=== PATIENT | female | born 1995 | race American Indian/Alaskan Native ===

== ENCOUNTER 2021-06-19 11:04 | Emergency (ER) | payer OTHER ==
--- NOTE | 2021-06-19 12:04 | Emergency Department Report ---
ED Female HPI - General Chief complaint: Vaginal Bleeding Stated complaint: 8WKS /BLEEDING Time Seen by Provider: 06/19/21 11:30 Source: patient Mode of arrival: Ambulatory Limitations: No Limitations - History of Present Illness Initial comments: 26-year-old female with no significant past medical history presents to the ER today with complaints of vaginal bleeding. Patient states that she is about 8 weeks based on her last menstrual cycle which was April 13, 2021. Patient states that she noticed the bleeding this morning. She states that when she wiped after urinating there was small amount of blood on the tissue. She has not had to use a pad or a panty liner. She denies any abdominal cramping. She denies any UTI symptoms or any abnormal vaginal discharge. She states that she is G1, P0. Her first appointment is May 31 with an [facility] at [facility]. Complaint: vaginal bleeding, other (about 8 weeks ) -: Sudden, This morning - Related Data Allergies Allergy/AdvReac Type Severity Reaction Status Date / Time No Known Allergies Allergy Unverified 06/19/21 11:17 ED Review of Systems ROS: Stated complaint: 8WKS /BLEEDING Other details as noted in HPI Comment: All other systems reviewed and negative Constitutional: denies: chills, fever Eyes: denies: eye pain, eye discharge, vision change ENT: denies: ear pain, throat pain Respiratory: denies: cough, orthopnea, shortness of breath, SOB with exertion, SOB at rest, stridor, wheezing Cardiovascular: denies: chest pain, palpitations Endocrine: no symptoms reported Gastrointestinal: denies: abdominal pain, nausea, diarrhea, constipation, hematemesis, hematochezia Genitourinary: other (abnormal vaginal bleeding). denies: urgency, dysuria, frequency, hematuria, discharge Musculoskeletal: denies: back pain, joint swelling, arthralgia Skin: denies: rash, lesions Neurological: denies: headache, weakness, numbness, paresthesias, confusion, abnormal gait, vertigo Psychiatric: denies: anxiety, depression, auditory hallucinations, visual hallucinations, homicidal thoughts, suicidal thoughts Hematological/Lymphatic: denies: easy bleeding, easy bruising ED Physical Exam - General Limitations: No Limitations General appearance: alert, in no apparent distress - Head Head exam: Present: atraumatic, normocephalic, normal inspection - Eye Eye exam: Present: normal appearance, PERRL, EOMI Pupils: Present: normal accommodation - ENT ENT exam: Present: normal exam, mucous membranes moist, TM's normal bilaterally - Neck Neck exam: Present: normal inspection, full ROM - Respiratory Respiratory exam: Present: normal lung sounds bilaterally. Absent: respiratory distress, wheezes, rales, rhonchi - Cardiovascular Cardiovascular Exam: Present: regular rate, normal rhythm, normal heart sounds - GI/Abdominal GI/Abdominal exam: Present: soft. Absent: distended, tenderness, guarding, rebound - Neurological Exam Neurological exam: Present: alert, oriented X3, CN II-XII intact, normal gait - Psychiatric Psychiatric exam: Present: normal affect, normal mood - Skin Skin exam: Present: intact, normal color ED Course Vital Signs 06/19/21 11:14 Temperature 98.9 F Pulse Rate 78 Respiratory 16 Rate Blood Pressure 137/70 [Left] O2 Sat by Pulse 99 Oximetry ED Medical Decision Making - Lab Data Result diagrams: 06/19/21 12:10 06/19/21 12:10 - Radiology Data Radiology results: report reviewed Patient: WAYNE MOSS MR#: [id number] : 1995 Acct:[id number] Age/Sex: 26 / F ADM Date: 06/19/21 Loc: ED Attending Dr: Ordering Physician: CECILE ALEGRIA Date of Service: 06/19/21 Procedure(s): US OB transvaginal Accession Number(s): [id number] cc: CECILE ALEGRIA ULTRASOUND OBSTETRIC INDICATION / CLINICAL INFORMATION: vag bleeding/8weeks preg. Clinical Gestational Age (GA) in weeks, days: 8, 5 TECHNIQUE: Transvaginal. COMPARISON: None available. FINDINGS: GESTATIONAL SAC: Well-defined oval shape and intrauterine in location. YOLK SAC: No significant abnormality. EMBRYO/FETUS: No significant abnormality. - [place]-Rump Length = 2.4 cm = 9, 1 weeks, days - Heart Rate, beats per minute (if present) = 169 ADNEXA: No significant abnormality. FREE FLUID: None. ADDITIONAL FINDINGS: None. IMPRESSION: 1. Single, living intrauterine with estimated sonographic age of 9, 1 weeks, days. heart tones are noted at 169 bpm. Signer Name: Corey Morrison DO Signed: 06/19/2021 3:09 PM Workstation Name: [id number] Transcribed By: KIRIT Dictated By: COREY MORRISON DO Electronically Authenticated By: COREY MORRISON DO Signed Date/Time: 06/19/21 1509 DD/ 1507 TD/TT: - Medical Decision Making CBC and CMP unremarkable. Urinalysis negative for UTI. Patient is Rh+ and therefore indication for RhoGam today[place] [id number] and OB ultrasound today intrauterine measuring 9 weeks 1 day with heart tones of 169. Patient currently resting comfortably. She is not in any acute distress. She reports no worsening bleeding since she has been in the ER. She is nontoxic. She is neurologically intact and ambulatory. Her vital signs are stable. Discussed ultrasound results and lab results with patient. Discussed the meaning of threatened miscarriage with patient. I recommend that she keeps her appointment with her B[facility]ING PRESS OPERATOR for May 31. She understands to return if anything changes or worsens. Patient was stable at time discharge. Critical care attestation.: If time is entered above; I have spent that time in minutes in the direct care of this critically ill patient, excluding procedure time. ED Disposition Clinical Impression: Threatened miscarriage Disposition: 01 HOME / SELF CARE / HOMELESS Is pt being admited?: No Does the pt Need Aspirin: No Condition: Stable Instructions: Threatened Miscarriage Additional Instructions: Keep your appointment with your BUSHING PRESS OPERATOR May 31. I recommend no strenuous activity or sexual intercourse until follow-up with your primary care doctor. Return to the ER if your symptoms changes or worsens in any way. Referrals: PRIMARY CARE, [Primary Care Provider] - 3-5 Days Forms: Work/School Release Form(ED) Time of Disposition: 15:29
[2021-06-19 12:38] LABS: Bilirubin,Urine NEG (Negative); Blood,Urine NEG (Negative); Color,Urine Yellow (Yellow); Mucus,Urine FEW /HPF; Protein,Urine <15 mg/dL mg/dL (Negative); Urobilinogen,Urine < 2.0 mg/dL (<2.0)
[2021-06-19 12:55] LABS: Basophils % (Auto) 0.6 % (0.0-1.8); Eosinophils # (Auto) 0.2 K/mm3 (0.0-0.4); Eosinophils % (Auto) 2.1 % (0.0-4.3); Hematocrit 37.7 % (30.3-42.9); Hemoglobin 12.7 gm/dl (10.1-14.3); Lymphocytes # (Auto) 2.6 K/mm3 (1.2-5.4); Lymphocytes % (Auto) 34.3 % (13.4-35.0); Mean Corpuscular HGB Conc 34 % (30-34); Mean Corpuscular Volume 81 fl (79-97); Monocytes # (Auto) 0.6 K/mm3 (0.0-0.8); Monocytes % (Auto) 7.5 % (0.0-7.3); Platelet Count 288 K/mm3 (140-440); Red Blood Count 4.66 M/mm3 (3.65-5.03); Red Cell Distribution Width 13.7 % (13.2-15.2)
[2021-06-19 13:10] LABS: Alanine Aminotransferase 10 units/L (7-56); Albumin 4.1 g/dL (3.9-5); Blood Urea Nitrogen 8 mg/dL (7-17); Calcium 9.1 mg/dL (8.4-10.2); Hemolysis Index 0
[2021-06-19 13:16] LABS: BUN/Creatinine Ratio 16
--- NOTE | 2021-06-19 15:13 | Ultrasound Report ---
ULTRASOUND OBSTETRIC INDICATION / CLINICAL INFORMATION: vag bleeding/8weeks preg. Clinical Gestational Age (GA) in weeks, days: 8, 5 TECHNIQUE: Transvaginal. COMPARISON: None available. FINDINGS: GESTATIONAL SAC: Well-defined oval shape and intrauterine in location. YOLK SAC: No significant abnormality. EMBRYO/FETUS: No significant abnormality. - [place]-Rump Length = 2.4 cm = 9, 1 weeks, days - Heart Rate, beats per minute (if present) = 169 ADNEXA: No significant abnormality. FREE FLUID: None. ADDITIONAL FINDINGS: None. IMPRESSION: 1. Single, living intrauterine with estimated sonographic age of 9, 1 weeks, days. h eart tones are noted at 169 bpm. Signer Name: Corey Morrison DO Signed: 06/19/2021 3:09 PM Workstation Name: [id number]
[2021-06-19 15:39] VITALS: BP 125/54
== END 2021-06-19 15:39 | disposition home or self-care (01) ==
LOC: ED 11:04
DX: O20.0 Threatened abortion (principal); Z3A.08 8 weeks gestation of pregnancy
CPT/HCPCS: 36415; 76817; 80053; 81001; 84702; 85025; 86900; 86901; 99284